=== PATIENT | female | born 2000 | race Caucasian/White ===

== ENCOUNTER 2019-11-14 17:02 | Emergency (ER) | payer OTHER ==
[~2019-11-14] VITALS: Ht 157.5 cm; Wt 52.2 kg
[2019-11-14 19:59] VITALS: BP 112/65
== END 2019-11-14 21:11 | disposition home or self-care (01) ==
LOC: ER 17:02
DX: M54.2 Cervicalgia (principal); M54.9 Dorsalgia, unspecified; Z88.6 Allergy status to analgesic agent
CPT/HCPCS: 72070; 72125